=== PATIENT | female | born 1955 | race Two or more races ===

== ENCOUNTER 2020-01-06 11:52 | Outpatient (CLI) | payer OTHER ==
[~2020-01-06 11:52] MED LIST: ATENOLOL25 MG; GLUCOPHAGE XR500 MG; LISINOPRIL10 MG
== END 2020-01-06 11:56 | disposition home or self-care (01) ==
LOC: SONOGRAMA 11:52
PROVIDERS: ATTEND Pathology Anatomic Pathology & Clinical Pathology
DX: E04.2 Nontoxic multinodular goiter (principal)

== ENCOUNTER 2022-08-11 10:34 | Outpatient (CLI) | payer OTHER | END 2022-08-11 10:36 | disposition home or self-care (01) | LOC: SONOGRAMA 10:34 | PROVIDERS: ATTEND Pathology Anatomic Pathology & Clinical Pathology | DX: D44.0 Neoplasm of uncertain behavior of thyroid gland (principal); E07.9 Disorder of thyroid, unspecified ==

== ENCOUNTER 2023-02-13 08:10 | Outpatient (CLI) | payer OTHER | END 2023-02-13 08:13 | disposition home or self-care (01) | LOC: SONOGRAMA 08:10 | PROVIDERS: ATTEND Pathology Anatomic Pathology & Clinical Pathology | DX: D44.0 Neoplasm of uncertain behavior of thyroid gland (principal); E07.9 Disorder of thyroid, unspecified ==